=== PATIENT | female | born 1955 | race Hispanic/Latino ===

== ENCOUNTER → 2017-07-29 | Outpatient (CLI) | payer OTHER | END | disposition home or self-care (01) | LOC: RAH 10:35 | PROVIDERS: ATTEND Internal Medicine | DX: R10.13 Epigastric pain (principal); Z80.0 Family history of malignant neoplasm of digestive organs | CPT/HCPCS: 76700 ==

== ENCOUNTER → 2017-11-18 | Outpatient (CLI) | payer OTHER | END | disposition home or self-care (01) | LOC: RAH 14:47 | PROVIDERS: ATTEND Internal Medicine | DX: M47.27 Other spondylosis with radiculopathy, lumbosacral region (principal) | CPT/HCPCS: 72148 ==

== ENCOUNTER → 2019-05-01 | Outpatient (CLI) | payer MEDICARE | END | disposition home or self-care (01) | LOC: RAH 09:06 | PROVIDERS: ATTEND Internal Medicine | DX: Z12.31 Encounter for screening mammogram for malignant neoplasm of breast (principal) | CPT/HCPCS: 77067 ==

== ENCOUNTER 2019-06-03 20:56 | Emergency (ER) | payer MEDICARE ==
[2019-06-03] MEDS ORDERED: DEXAMETHASONE SOD PHOSPHATE 10MG/ML 1ML VIAL ONE (22:06)
[2019-06-03] MEDS ORDERED: IBUPROFEN 200 MG TAB ONE (22:06)
== END 2019-06-03 22:57 | disposition home or self-care (01) ==
LOC: EDH 20:56
DX: R07.0 Pain in throat (principal); E11.9 Type 2 diabetes mellitus without complications; I10 Essential (primary) hypertension; Z91.012 Allergy to eggs; Z88.0 Allergy status to penicillin
CPT/HCPCS: 87880; 96372; 99283; J1100

== ENCOUNTER → 2021-12-04 | Outpatient (CLI) | payer MEDICARE | END | disposition home or self-care (01) | LOC: RAH 13:45 | PROVIDERS: ATTEND Internal Medicine | DX: Z12.31 Encounter for screening mammogram for malignant neoplasm of breast (principal) | CPT/HCPCS: 77067 ==

== ENCOUNTER → 2022-01-17 | Outpatient (CLI) | payer MEDICARE | END | disposition home or self-care (01) | LOC: RAH 09:15 | PROVIDERS: ATTEND Internal Medicine | DX: G45.9 Transient cerebral ischemic attack, unspecified (principal); R20.0 Anesthesia of skin | CPT/HCPCS: 70450 ==

== ENCOUNTER → 2022-03-26 | Outpatient (CLI) | payer MEDICARE | END | disposition home or self-care (01) | LOC: RAH 10:12 | PROVIDERS: ATTEND Internal Medicine | DX: M47.815 Spondylosis without myelopathy or radiculopathy, thoracolumbar region (principal); R05.9 Cough, unspecified | CPT/HCPCS: 71046 ==

== ENCOUNTER → 2025-05-19 | Outpatient (CLI) | payer MEDICARE ==
--- NOTE | 2025-05-19 23:53 | HMCIMG ---
EXAM: CR Thoracic Spine, 2 Views. CLINICAL HISTORY: Thoracic radiculopathy. COMPARISON: None provided. TECHNIQUE: Anteroposterior and lateral radiographs of the thoracic spine were obtained. FINDINGS: VERTEBRAE: The thoracic vertebral body heights are maintained. No acute fracture or subluxation is identified. DISC SPACES / DEGENERATIVE CHANGES: Mild degenerative changes are noted throughout the thoracic spine, characterized by marginal osteophyte formation, consistent with mild thoracic spondylosis. PARASPINAL SOFT TISSUES: Unremarkable. IMPRESSION: 1.Mild spondylosis of the thoracic spine. 2.No acute osseous abnormality. /[place]
== END | disposition home or self-care (01) ==
LOC: RAH 12:23
PROVIDERS: ATTEND Internal Medicine
DX: M47.24 Other spondylosis with radiculopathy, thoracic region (principal); M25.78 Osteophyte, vertebrae
CPT/HCPCS: 72070